=== PATIENT | female | born 1975 | race Caucasian/White ===

== ENCOUNTER 2018-11-04 09:37 | Outpatient (REF) | payer MEDICAID, SELFPAY ==
--- NOTE | 2018-11-04 08:45 | PAPFT_PTH ---
PATIENT: MONIQUE GUEVARA LOC: [facility] U#:[id number] AGE/SX: 43/F ROOM: RE11/04/[address]: Veronica Almendarez : 1975 BED: DIS: 11/04/2018 SPEC #: [id number] RECD: 11/04/18 12:59 STATUS: KRIS HESTER #: [id number] MILES: 11/04/18 08:[address]: Veronica Almendarez DEPT: [facility] Cytology RECD BY: Cristy Elaine Tissues: 1 - CX/ENDOCX FOR PAP SMEARS Procedures: PAP THIN PREP/UVM Screening Comments: [id number]
== END 2018-11-04 09:57 ==
LOC: NCHCN 09:37
PROVIDERS: PCP Nurse Practitioner; Visit Provider Nurse Practitioner
DX: Z12.4 Encounter for screening for malignant neoplasm of cervix (principal); Z00.00 Encounter for general adult medical examination without abnormal findings
CPT/HCPCS: 88142

== ENCOUNTER 2019-05-03 16:37 | Emergency (ER) | payer MEDICAID, SELFPAY ==
[2019-05-03 16:44] VITALS: BP 128/71; PULSE 124; RESP 24; TEMP 37.3; O2SAT 99
[2019-05-03] MEDS: Ondansetron 4 MG/2 ML VIAL (17:36)
[2019-05-03] MEDS: Normal Saline 1,000 ML 1000 ML IV ×2 (17:37→19:36)
[2019-05-03 17:46] LABS: Abs Immature Grans 0.02 k/cumm (0.0-0.09); Absolute Basophil Count 0.01 k/cumm (0.0-0.2); Absolute Lymphocyte Count 1.05 k/cumm (1.2-3.4); Absolute Neutrophil Count 3.29 k/cumm (1.2-6.7); Basophils % 0.2; HCT 44.2 % (36.0-46.0); HGB 15.6 g/dL (12.0-15.5); Immature Grans % 0.4; Lymphocytes % 22.5; Mean Corp. HGB Concentration 35.3 g/dL (32.0-36.0); Mean Corpuscular Hemoglobin 30.3 pg (27.0-33.0); Mean Corpuscular Volume 85.8 fL (80-95); Mean Platelet Volume 9.5 fL (8.0-11.0); Monocytes % 6.4; Neutrophils % 70.5; Platelet Count 178 x1000/uL (130-400); RBC 5.15 m/cumm (4.00-5.20); RBC Distribution Width 12.4 % (11.7-14.6); White Blood Cell Count 4.67 k/cumm (4.4-10.8)
[2019-05-03 17:47] LABS: Lactate 2.5 mmol/L (0.6-1.4)
--- NOTE | 2019-05-03 17:51 | W.ED.GENAD ---
Discharge Plan Disposition Patient Disposition: HOME Condition: Stable Discharge Details Chief Complaint: Cellulitis Clinical Impression: Fever, Rash, Headache Primary Care Provider: Veronica Almendarez ED Provider: Kayla Bergman Home Meds and New Rx's Prescriptions: New doxycycline hyclate 100 mg tablet 100 mg PO BID 21 Days Qty: 42 RF: 0 Discharge Instructions Instructions: Lyme Disease (ED), Fever in Adults (ED), Acute Rash (ED), General Headache (ED) Additional Instructions: Take the antibiotics until finished. Alternate Tylenol and Motrin as needed and directed for pain and fever. Drink plenty of fluids and get plenty of rest. You will be notified if you have a positive Lyme disease test. Follow-up with your scheduled appointment with your primary care doctor this week. Return immediately to the emergency department if you develop any worsening or new concerning symptoms such as persistent fevers, worsening headache, chest pain, shortness of breath or any other concerns. Discharge Data Discharge Date/Time-TO BE ENTERED AT DEPARTURE: 05/03/19 20:27 Discharge Physician: Kayla Bergman Medical Decision Making 1709 -- 43-year-old female with history of hypoglycemia who presents with complaint of possible spider bite to her left calf sustained 2 days ago. She states she developed a right-sided headache and neck pain 1 day prior to this but this has worsened since the possible spider bite. She does admit to a history of chronic right sided head and neck pain for several years but states it is worse since her possible bug bite. Heart rate 124 on arrival. Temp 99.1. Patient appeared uncomfortable and nauseous. She had IV placed, bolus IV fluids, dose of Zofran as well as screening labs done on arrival. Left posterior leg rash appeared consistent with an early cellulitis versus bull's-eye rash. Friend in room had a picture on her phone of the rash from 2 days ago which looked very consistent with a bull's-eye rash. In patient's presentation of headache, fever, chills, would be concerned about Lyme disease. She has no meningeal signs. Has her right sided head and neck pain has been present for several years and worse since onset of her rash, does not appear consistent with meningitis, but would be a possibility. Discussed the possibility of lumbar puncture but patient would rather hold on this at this time. 1840 -- Upon my reassessment, patient still complaining of headache. A second liter of IV fluids, Toradol, Compazine and CT head ordered. Labs and imaging reviewed. Normal white blood cell count. Potassium 3.1. Bicarb 20.7. Anion gap 15. Glucose 123. Lactate 2.5. Magnesium 1.4. Urinalysis negative. Urine negative. CT head noted findings consistent with sinusitis. 2004 -- Patient had been signed out to my colleague Dr. Raymond to follow-up on patient's response to medications. However shortly after signout, patient had requested to leave. She stated that the IV was bothering her arm and she wanted it taken out. She had just started the second liter of fluids. She had magnesium still running. She wanted the magnesium and IV fluids stopped. She states she had much improvement with the Toradol and Compazine. Discussed with patient that we could be possibly missing bacterial or Lyme meningitis and she is aware of the risk of and disability associated with these diagnoses but would like to go home at this time. She demonstrates capacity make decisions. She appeared more comfortable. Her heart rate normalized. We will give 1 dose of doxycycline here as well as prescription which can cover for possible Lyme disease, sinusitis, or cellulitis associated with a bug or spider bite. A tick and Lyme panel was obtained. She has a follow-up appoint with her primary care doctor this week. She was instructed to return here immediately if worse. Medical Records Medical records reviewed: Yes I reviewed the patient's medical records. Imaging Data Radiologic Study: Radiologist's impression: CT Head Without Contrast EXAM DATE/TIME: 05/03/2019 19:06 CLINICAL HISTORY: 43 years old, female; Pain; Patient HX: Headache, L sided, chills; Additional info: R/O acute process TECHNIQUE: Imaging protocol: Computed tomography images of the head without contrast. Coronal and sagittal reformatted images were created and reviewed. COMPARISON: No relevant prior studies available. FINDINGS: Brain: No hemorrhage. No significant white matter disease. No edema. Ventricles: No ventriculomegaly. Bones/joints: No acute fracture. Sinuses: Significant opacification of the sphenoid sinus with air-fluid level, probably acute sinusitis. Mastoid air cells: No mastoid effusion. Soft tissues: No suspicious lesions. IMPRESSION: 1. No acute intracranial findings. 2. Significant opacification of the sphenoid sinus with air-fluid level, probably acute sinusitis. Lab Data Lab results reviewed: Yes I reviewed the patient's lab results. 05/03/19 17:55 Blood Blood Culture - Pending 05/03/19 17:21 Blood Blood Culture - Pending Laboratory Tests Range/Units 05/03/19 05/03/19 05/03/19 17:21 17:21 17:21 WBC (4.4-10.8) k/cumm 4.67 RBC (4.00-5.20) m/cumm 5.15 Hgb (12.0-15.5) g/dL 15.6 H Hct (36.0-46.0) % 44.2 MCV (80-95) fL 85.8 MCH (27.0-33.0) pg 30.3 MCHC (32.0-36.0) g/dL 35.3 RDW (11.7-14.6) % 12.4 Plt Count (130-400) x1000/uL 178 MPV (8.0-11.0) fL 9.5 Immature Gran % 0.4 Neutrophils % 70.5 Lymphocytes % 22.5 Monocytes % 6.4 Eosinophils % 0.0 Basophils % 0.2 Absolute Neutrophils (1.2-6.7) k/cumm 3.29 Absolute Lymphocytes (1.2-3.4) k/cumm 1.05 L Absolute Monocytes (0.11-0.7) k/cumm 0.30 Absolute Eosinophils (0.0-0.7) k/cumm 0.00 Absolute Basophils (0.0-0.2) k/cumm 0.01 Sodium (136-145) mmol/L 134 L Potassium (3.5-5.1) mmol/L 3.1 L Chloride (98-107) mmol/L 98 Carbon Dioxide (21.0-32.0) mmol/L 20.7 L Anion Gap (3-11) mmol/L 15.3 H BUN (7-18) mg/dL 8 Creatinine (0.55-1.02) mg/dL 1.12 H Estimated GFR/1.73 m2 (mL/min/1.73m2) 52.85 Glucose (70-100) mg/dL 123 H Lactate (0.6-1.4) mmol/L 2.5 H* Calcium (8.5-10.1) mg/dL 8.8 Magnesium (1.8-2.4) mg/dL 1.4 L Total Bilirubin (0.2-1.0) mg/dL 0.3 AST (15-37) U/L 34 ALT (12-78) U/L 35 Alkaline Phosphatase (46-116) U/L 59 Total Protein (6.4-8.2) g/dL 8.4 H Albumin (3.4-5.0) g/dL 3.6 Urine Color (Yellow) Urine Clarity (Clear) Urine pH (5-8) Ur Specific [place] (1.005-1.025) Urine Protein (Negative) mg/dL Urine Ketones (Negative) mg/dL Urine Blood (Negative) Urine Nitrite (Negative) Urine Bilirubin (Negative) Urine Urobilinogen (Up TO 0.2) EU/dL Ur Leukocyte Esterase (Negative) Urine Glucose (Negative) mg/dL Range/Units 05/03/19 19:10 WBC (4.4-10.8) k/cumm RBC (4.00-5.20) m/cumm Hgb (12.0-15.5) g/dL Hct (36.0-46.0) % MCV (80-95) fL MCH (27.0-33.0) pg MCHC (32.0-36.0) g/dL RDW (11.7-14.6) % Plt Count (130-400) x1000/uL MPV (8.0-11.0) fL Immature Gran % Neutrophils % Lymphocytes % Monocytes % Eosinophils % Basophils % Absolute Neutrophils (1.2-6.7) k/cumm Absolute Lymphocytes (1.2-3.4) k/cumm Absolute Monocytes (0.11-0.7) k/cumm Absolute Eosinophils (0.0-0.7) k/cumm Absolute Basophils (0.0-0.2) k/cumm Sodium (136-145) mmol/L Potassium (3.5-5.1) mmol/L Chloride (98-107) mmol/L Carbon Dioxide (21.0-32.0) mmol/L Anion Gap (3-11) mmol/L BUN (7-18) mg/dL Creatinine (0.55-1.02) mg/dL Estimated GFR/1.73 m2 (mL/min/1.73m2) Glucose (70-100) mg/dL Lactate (0.6-1.4) mmol/L Calcium (8.5-10.1) mg/dL Magnesium (1.8-2.4) mg/dL Total Bilirubin (0.2-1.0) mg/dL AST (15-37) U/L ALT (12-78) U/L Alkaline Phosphatase (46-116) U/L Total Protein (6.4-8.2) g/dL Albumin (3.4-5.0) g/dL Urine Color (Yellow) Yellow Urine Clarity (Clear) Clear Urine pH (5-8) 7.0 Ur Specific [place] (1.005-1.025) 1.015 Urine Protein (Negative) mg/dL Negative Urine Ketones (Negative) mg/dL 15 H Urine Blood (Negative) Negative Urine Nitrite (Negative) Negative Urine Bilirubin (Negative) Negative Urine Urobilinogen (Up TO 0.2) EU/dL 0.2 Ur Leukocyte Esterase (Negative) Negative Urine Glucose (Negative) mg/dL Negative ECG Data Attestation: I personally reviewed and interpreted this ECG (s) as follows: Interpretation: Rate of 69, sinus, no acute ST elevation or depression. Normal AL interval. QTc 441. QRS 92 HPI General Mode of arrival: wheelchair. Date/Time Provider Initiated Documentation: 05/03/19 16:51. Limitations to Documentation: no limitations. Information obtained by: patient. HPI Narrative: Patient is a 43-year-old female with a history of hypoglycemia who presents with concern for spider bite to her left posterior leg. Patient states 2 days ago she awoke at 2 AM with a sharp pain in her left posterior leg. She states shortly after awakening the next morning she noted a large spider which was approximately 2 x 2 cm which she thinks was the cause of her bite and pain. She states since then she has developed increasing redness and pain in her leg and now associated with chills, body aches and headache. She states she did develop a headache 1 to 2 days before the onset of the leg redness but states it is significantly worsened since the bite. She is quite certain that it is the result of a spider bite. She denies any known tick bite. She has not taken her temperature. She states she has a history of chronic right-sided headache and right-sided neck pain which has been associated with sinus infections over the past few years. She states her current headache is in the same location for the past 5 days but feels more intense and has been more constant than usual. She denies any sensitivity to light or posterior headache. She denies any extremity weakness or numbness. She denies any cough, sore throat, ear pain, chest pain, shortness of breath, abdominal pain, urinary symptoms. Related Data Home Medications Medication Instructions Recorded Confirmed doxycycline hyclate 100 mg PO BID 21 Days #42 tab 05/03/19 Previous Rx's Medication Instructions Recorded doxycycline hyclate 100 mg PO BID 21 Days #42 tab 05/03/19 Allergies Allergy/AdvReac Type Severity Reaction Status Date / Time diphenhydramine Allergy Severe Other (See Unverified 05/03/19 16:49 Comment) iodine Allergy Severe Skin Rash Unverified 05/03/19 16:49 latex Allergy Severe Skin Rash Unverified 05/03/19 16:49 General Stated Complaint: Cellulitis SIENNA: 3 Review of Systems Review of Systems All systems reviewed & are unremarkable except as noted in HPI and below Constitutional Reports as per HPI, Reports chills, Reports fever(s) and Reports headache(s) Eyes Denies blurry vision ENT Denies dizziness, Reports headache(s), Denies sore throat and Denies throat swelling Cardiovascular Denies chest pain and Denies dyspnea Respiratory Denies cough and Denies dyspnea Gastrointestinal Denies abdominal pain, Denies diarrhea and Denies vomiting Genitourinary Denies hematuria and Denies dysuria Musculoskeletal Denies back pain and Denies numbness Integumentary/Breasts Reports lesions and Reports rash Neurologic Denies dizziness, Reports headache(s), Denies focal weakness and Denies numbness Allergic/Immunologic Denies throat swelling [facility] Medical History Hypoglycemia (Acute) Surgical History H/O unilateral oophorectomy (Acute) History of back surgery (Acute) Hx of bilateral salpingectomy (Acute) Social History Smoking/Tobacco Use Status: Current-Occasional Tobacco Type: cigarettes Alcohol Intake: current Alcohol Intake frequency: holidays/special occasions only Drug use: Socially Substance use type: marijuana Exam Const General: cooperative and healthy appearing Orientation: alert and awake [facility] Head: normal to inspection Ears: hearing grossly normal bilaterally, external ears normal and TM's normal bilaterally General nose exam: external nose normal Face and sinus: normal facial exam Mouth: oral mucosae normal Teeth and gingiva: dentition normal Throat: posterior oropharynx normal Eyes General: appearance normal, both eyes and all related structures Eyelids: eyelids normal Pupils: PERRL EOM: EOM intact bilaterally Neck Neck: normal visual inspection Lymphatic: no lymphadenopathy noted Chest Chest: normal inspection of the chest Resp Effort & Inspection: normal respiratory effort and able to speak in complete sentences Auscultation: clear to auscultation bilaterally Cardio Rate: regular rate Rhythm: regular rhythm GI Inspection: normal to inspection Palpation: soft, not firm, no guarding, no hepatosplenomegaly, no masses and nontender Auscultation: normal bowel sounds Back/Spine/Pelvis Back: no CVA tenderness Skin Full body images: 1. 2 x 3 cm area of clustered papules/questionable vesicles which are significantly tender to palpation. There is a very faint area of clearing surrounding this area with an additional very faint area of erythrema surrounding the clearing which could be possibly consistent with a bull's-eye rash. No abscess noted Neuro General: alert and awake Cranial Nerves: CN's II-XI intact bilaterally Cognition: normal cognition Speech: speech normal Gait: normal gait Motor: muscle tone normal throughout and strength 5/5 throughout Sensory Exam: no sensory deficits noted Extrem General: normal to inspection, full ROM and normal capillary refill Psych Appearance: grossly normal Mental Status: mental status grossly normal Speech and Movement: speech and movement normal Affect: normal affect Thought Process: normal Course Vital Signs Temperature 99.1 F 05/03/19 16:44 Pulse 124 H 05/03/19 16:44 Respiratory Rate 24 05/03/19 16:44 Blood Pressure 128/71 05/03/19 16:44 Pulse Oximetry 99 05/03/19 16:44 Temperature 99.1 F 05/03/19 16:44 Pulse 124 H 05/03/19 16:44 Respiratory Rate 24 05/03/19 16:44 Respiratory Effort 08/03/19 16:46 Blood Pressure 128/71 08/03/19 16:44 Pulse Oximetry 99 05/03/19 16:44 Pain Level 8 05/03/19 16:44 Lab/Test Results Lab/Test Results: 05/03/19 17:21 Blood Blood Culture - Pending 05/03/19 17:25 Blood Blood Culture - Pending Laboratory Tests Range/Units 05/03/19 05/03/19 17:21 17:21 WBC (4.4-10.8) k/cumm 4.67 RBC (4.00-5.20) m/cumm 5.15 Hgb (12.0-15.5) g/dL 15.6 H Hct (36.0-46.0) % 44.2 MCV (80-95) fL 85.8 MCH (27.0-33.0) pg 30.3 MCHC (32.0-36.0) g/dL 35.3 RDW (11.7-14.6) % 12.4 Plt Count (130-400) x1000/uL 178 MPV (8.0-11.0) fL 9.5 Immature Gran % 0.4 Neutrophils % 70.5 Lymphocytes % 22.5 Monocytes % 6.4 Eosinophils % 0.0 Basophils % 0.2 Absolute Neutrophils (1.2-6.7) k/cumm 3.29 Absolute Lymphocytes (1.2-3.4) k/cumm 1.05 L Absolute Monocytes (0.11-0.7) k/cumm 0.30 Absolute Eosinophils (0.0-0.7) k/cumm 0.00 Absolute Basophils (0.0-0.2) k/cumm 0.01 Lactate (0.6-1.4) mmol/L 2.5 H* Sign Out Sign Out Data: Sign Out Comment: Follow-up on patient's response to medications and final disposition. If patient has no improvement, discuss plan for possible lumbar puncture. If significantly improved, can consider discharge home with follow-up with primary care doctor and treatment for possible Lyme disease with doxycycline. Last updated by Kayla Bergman DO at 05/03/19 19:57
[2019-05-03 17:55] VITALS: TEMP 38
[2019-05-03 17:59] LABS: ALT 35 U/L (12-78); AST 34 U/L (15-37); Albumin 3.6 g/dL (3.4-5.0); Alkaline Phosphatase 59 U/L (46-116); Anion Gap 15.3 mmol/L (3-11); BUN 8 mg/dL (7-18); Bilirubin, Total 0.3 mg/dL (0.2-1.0); CO2 20.7 mmol/L (21.0-32.0); CREATININE 1.12 mg/dL (0.55-1.02); Calcium 8.8 mg/dL (8.5-10.1); Chloride 98 mmol/L (98-107); Estimated GFR 52.85 (mL/min/1.73m2); Glucose 123 mg/dL (70-100); Magnesium 1.4 mg/dL (1.8-2.4); Potassium 3.1 mmol/L (3.5-5.1); Sodium 134 mmol/L (136-145); Total Protein 8.4 g/dL (6.4-8.2)
--- NOTE | 2019-05-03 19:17 | DI.CT_ITS ---
SYMPTOMS/DIAGNOSIS: HEADACHE LT SIDED, CHILLS, ? ACUTE PROCESS NONCONTRAST HEAD CT: No intracranial hemorrhage, mass or infarct is seen. The ventricles are normal in size. There is fluid in the sphenoid sinus. No bony destruction is seen. IMPRESSION: Sphenoid sinusitis.
[2019-05-03 19:30] LABS: Bilirubin Negative (Negative); Blood Negative (Negative); Clarity Clear (Clear); Glucose Negative (Negative); Ketones 15 mg/dL (Negative); Leukocyte Esterase Negative (Negative); Nitrite Negative (Negative); Specific Gravity 1.015 (1.005-1.025); Urobilinogen 0.2 EU/dL (Up TO 0.2)
--- NOTE | 2019-05-03 19:31 | DI.VRAD_ITS ---
EXAM: CT Head Without Contrast EXAM DATE/TIME: 05/03/2019 19:06 CLINICAL HISTORY: 43 years old, female; Pain; Patient HX: Headache, L sided, chills; Additional info: R/O acute process TECHNIQUE: Imaging protocol: Computed tomography images of the head without contrast. Coronal and sagittal reformatted images were created and reviewed. COMPARISON: No relevant prior studies available. FINDINGS: Brain: No hemorrhage. No significant white matter disease. No edema. Ventricles: No ventriculomegaly. Bones/joints: No acute fracture. Sinuses: Significant opacification of the sphenoid sinus with air-fluid level, probably acute sinusitis. Mastoid air cells: No mastoid effusion. Soft tissues: No suspicious lesions. IMPRESSION: 1. No acute intracranial findings. 2. Significant opacification of the sphenoid sinus with air-fluid level, probably acute sinusitis. Dictated and Authenticated by: Faustina Plunkett MD. Ordering:COLLINS Garza MD
[2019-05-03] MEDS: Potassium Chloride 20 MEQ TABCR 40 MEQ PO (19:36)
[2019-05-03] MEDS: Ketorolac 30 MG/ML VIAL IVP (19:37)
[2019-05-03] MEDS: Prochlorperazine 10 MG/2 ML VIAL IVP (19:39)
[2019-05-03] MEDS: MAGNESIUM SULFATE 2 GM/50 ML BAG IVPB (19:40)
--- NOTE | 2019-05-03 20:00 | NUR.NOTE ---
Nursing Note: pt resting in stretcher, no signs of distress. Provided apple juice, tolerating PO intake without difficulty.
--- NOTE | 2019-05-03 20:10 | NUR.NOTE ---
Nursing Note: Magnesium drip stopped with approximately 37 mLs left in the bag. pt states that she refuses the rest of the magnesium.
[2019-05-03 20:19] VITALS: BP 97/61; PULSE 75; RESP 16; O2SAT 100
[2019-05-03] MEDS: Doxycycline Hyclate 100 MG CAP PO ×2 (20:28)
--- NOTE | 2019-05-03 20:28 | NUR.NOTE ---
Nursing Note: pt alert/oriented/ambulatory with steady gait. d.c to home with mother. instructions reviewed, medication education discussed, emphasis on the importance of follow up care. VSS
[2019-05-05 12:19] LABS: Lyme Ab w Rflx to Lyme Confirm Negative
[2019-05-06 14:57] LABS: Anaplasma phagocytophilum Negative (Negative); B. miyamotoi PCR Negative (Negative); Babesia divergens/MO-1 Negative (Negative); Babesia duncani Negative (Negative); Babesia microti Negative (Negative); Ehrlichia chaffeensis Negative (Negative); Ehrlichia ewingii/canis Negative (Negative); Ehrlichia muris eauclairensis Negative (Negative)
== END 2019-05-03 20:27 | disposition home or self-care (01) ==
LOC: ER 20:30
PROVIDERS: Emergency Provider Physician Assistant; PCP Nurse Practitioner
DX: R21 Rash and other nonspecific skin eruption (principal); R50.9 Fever, unspecified; R51 Headache; S80.862A Insect bite (nonvenomous), left lower leg, initial encounter; W57.XXXA Bitten or stung by nonvenomous insect and other nonvenomous arthropods, initial encounter; J01.90 Acute sinusitis, unspecified; Z53.29 Procedure and treatment not carried out because of patient's decision for other reasons
CPT/HCPCS: 36415; 80053; 81025; 87040; 87798; 93005; 96361; 96365; 96375; 99285; 70450; 81003; 83605; 83735; 85025; 86618; 93010; J0780; J1885; J2405

== ENCOUNTER 2019-05-04 06:47 | Emergency (ER) | payer MEDICAID, SELFPAY ==
[2019-05-04 06:50] VITALS: BP 105/64; PULSE 110; RESP 16; TEMP 37.1; O2SAT 98
--- NOTE | 2019-05-04 07:04 | W.ED.GENAD ---
Discharge Plan Disposition Patient Disposition: HOME Condition: Stable Discharge Details Chief Complaint: Cellulitis Clinical Impression: Headache, Rash, Cellulitis of left leg Primary Care Provider: Veronica Almendarez ED Provider: Kayla Bergman Home Meds and New Rx's Prescriptions: New cephalexin [Keflex] 500 mg capsule 500 mg PO QID 7 Days Qty: 28 RF: 0 mupirocin 2 % ointment 1 applic TP BID Qty: 15 RF: 0 Continued doxycycline hyclate 100 mg tablet 100 mg PO BID 21 Days Qty: 42 RF: 0 Discharge Instructions Instructions: Cellulitis (ED), Acute Rash (ED), General Headache (ED) Additional Instructions: Take the antibiotics until finished. Apply the topical antibiotic cream as directed. Follow-up with your scheduled appointment with your primary care doctor tomorrow. Return immediately to the emergency department if you develop any worsening or new concerning symptoms. Discharge Data Discharge Date/Time-TO BE ENTERED AT DEPARTURE: 05/04/19 11:22 Discharge Physician: Kayla Bermgan Medical Decision Making <Sumanth Raymond MD - Last Filed: 05/04/19 07:10> 43 yo female who guero chronic medical problems who comes in with chief complaint of right sided neck and head pain since Sunday. She also noted a rash on the posterior left calf that she feels is likely a spider bite. She was seen in the ED last night and had lab work done and started tx for possible lyme. She had a CT of her head done which showed likely sinusitis which the patient wasn't aware of and feels this could be causing her pain. She localizes the pain to the right neck wrapping around the posterior head to the frontal portion. Normal appearing eye, perrl, eomi, no focal motor or sensation deficits on exam. 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 I suspect her pain is due to the sinusitis but will obtain CTA to eval for possible dissection given it is one sided. She has no temporal artery pain so doubt temproal arteritis. Pain slowly worsened, not thunderclap in description so doubt sah. In terms of her rash sh ehas mild erythema about 3x3cm that is not significantly warm to touch of the posterior left leg. It could be form a spider bite, also could be tick born illness which panel was sent last night. No crepitus or severe pain so doubt nec fasc. Not significantly warm to touch so less likely cellulitis and no fluctuance to suggest abscess. Do not feel this rash requires further eval or tx at this time pt to be signed out to oncoming provider pending labs and imaging results Differential Diagnosis sinusitis, dissection, lyme <Kayla Bergman DO - Last Filed: 05/05/19 16:18> Please see Dr. Raymond's notes for initial presentation, exam and plan. 43-year-old female with no significant past medical history presents with right-sided headache and neck pain for the past 5 days and left post leg rash for the past 4 days which she thought was likely due to a spider bite. She was seen last night for the same complaint and had CT head which noted acute sinusitis, lab work which revealed a lactate of 2.5, normal white blood cell count. She was given IV fluids, Toradol and Compazine and felt much better and requested to go home. Her leg rash per a picture on a phone earlier this week looked consistent with a bull's-eye rash and she was treated for possible Lyme disease. It was discussed obtaining a possible lumbar puncture for possible meningitis as patient had a fever, headache and neck pain, but patient declined lumbar puncture at this time. She has had chronic right-sided head and neck pain for the past 3 years, has no photophobia, and no meningeal signs, so diagnosis of meningitis appears less likely. She returns this morning with worsening redness to her leg and persistent right-sided head and neck pain. Case endorsed to follow-up on lab work and CTA head and neck. 0800 --upon my evaluation, patient states she does not recall me telling her that she had acute sinusitis on her CT had yesterday I discussed that we did discuss this but that she was also notified that there were no acute findings in her brain. Discussed that the doxycycline she was given for possible Lyme disease would cover for possible sinusitis, however in the emergency department we also must rule out more concerning symptoms and signs indicative of a more serious pathology such as meningitis. Patient's presentation today does not appear consistent with meningitis. She appears nontoxic, no meningeal signs. Her left leg rash appears to be worsening. There does appear to have a component of a clearing consistent with a bull's-eye rash with very tender papules in the center. Case was discussed with [facility] ID who states that erythema migrans can have a very tender center. Agrees with plan for treating with doxycycline at this time. Patient declined any further IV fluids. Will give a dose of Decadron 1010 --CTA head and neck negative for acute findings. Patient states she feels much better but just overall feels like she feels stiff and achy as she has been laying in bed for the last few days and is normally very active. She feels good to go home. We will give a dose of Toradol and follow-up on repeat lactate. 1045 --repeat lactate now normal. Patient states she feels better and would like to go home. Will add Keflex and topical Bactroban for mild worsening cellulitis. It is possible that the doxycycline has not had enough time to produce an effect. She has a follow-up appoint with her primary care doctor tomorrow. She is advised to return here anytime if worse. HPI <Sumanth Raymond MD - Last Filed: 05/04/19 07:10> General Mode of arrival: ambulatory. Date/Time Provider Initiated Documentation: 05/04/19 06:48. Limitations to Documentation: no limitations. Information obtained by: patient. History of Present Illness 44 year old F presents to the emergency department with the chief complaint of right sided head and neck pain, described as moderate, Quality is described as aching, and is localized to the head and neck. Patient started experiencing this day(s) (4) and it has been constant. No relieving factors improve symptom(s), No exacerbating factors reported . Patient did receive the following treatments prior to arrival, NSAID Related Data Home Medications Medication Instructions Recorded Confirmed doxycycline hyclate 100 mg PO BID 21 Days #42 tab 05/03/19 cephalexin [Keflex] 500 mg PO QID 7 Days #28 cap 05/04/19 mupirocin 1 applic TP BID #15 gm 05/04/19 Previous Rx's Medication Instructions Recorded doxycycline hyclate 100 mg PO BID 21 Days #42 tab 05/03/19 cephalexin [Keflex] 500 mg PO QID 7 Days #28 cap 05/04/19 mupirocin 1 applic TP BID #15 gm 05/04/19 Allergies Allergy/AdvReac Type Severity Reaction Status Date / Time diphenhydramine Allergy Severe Other (See Unverified 05/03/19 16:49 Comment) iodine Allergy Severe Skin Rash Unverified 05/03/19 16:49 latex Allergy Severe Skin Rash Unverified 05/03/19 16:49 General Stated Complaint: Cellulitis SIENNA: 3 Review of Systems <Sumanth Raymond MD - Last Filed: 05/04/19 07:10> Review of Systems All systems reviewed & are unremarkable except as noted in HPI and below Constitutional Denies chills, Denies fever(s) and Denies weakness Cardiovascular Denies chest pain and Denies dyspnea Respiratory Denies cough and Denies dyspnea Gastrointestinal Denies abdominal pain, Denies nausea and Denies vomiting Musculoskeletal Denies joint swelling Neurologic Denies weakness PFSH <Sumanth Raymond MD - Last Filed: 05/04/19 07:10> Social History Smoking/Tobacco Use Status: Current-Occasional Tobacco Type: cigarettes Alcohol Intake: current Alcohol Intake frequency: holidays/special occasions only Drug use: Socially Substance use type: marijuana Do you feel safe at home: Yes Do you feel safe in your relationship?: Yes Exam <Sumanth Raymond MD - Last Filed: 05/04/19 07:10> Const General: no acute distress Orientation: alert HENSC Head: normal to inspection Ears: external ears normal General nose exam: external nose normal Mouth: moist mucous membranes Eyes General: appearance normal, both eyes and all related structures Neck Neck: normal visual inspection Resp Effort & Inspection: normal respiratory effort and able to speak in complete sentences Cardio Rate: regular rate Skin General skin exam: elasticity normal Neuro General: alert and oriented x3 Extrem General: full ROM and normal capillary refill Psych Mental Status: mental status grossly normal Course <Sumanth Raymond MD - Last Filed: 05/04/19 07:10> Vital Signs Temperature 37.1 C 05/04/19 06:50 Pulse 110 H 05/04/19 06:50 Respiratory Rate 16 05/04/19 06:50 Blood Pressure 105/64 05/04/19 06:50 Pulse Oximetry 98 05/04/19 06:50 Temperature 37.1 C 05/04/19 06:50 Temperature Source Tympanic 05/04/19 06:50 Pulse 110 H 05/04/19 06:50 Respiratory Rate 16 05/04/19 06:50 Respiratory Effort 05/04/19 06:53 Blood Pressure 105/64 05/04/19 06:50 Pulse Oximetry 98 05/04/19 06:50 Oxygen Delivery Method Room Air 05/04/19 06:50 Oxygen Flow Rate 0 05/04/19 06:50 Pain Level 6 05/04/19 06:50 Sign Out <Sumanth Raymond MD - Last Filed: 05/04/19 07:10> Sign Out Data: Sign Out Comment: follow up on labs and imaging results Last updated by Sumanth Raymond MD at 05/04/19 07:11
[2019-05-04 07:37] LABS: Lactate-non-spesis 2.2 mmol/l (0.6-1.4)
[2019-05-04 07:42] LABS: Abs Immature Grans 0.01 k/cumm (0.0-0.09); Absolute Basophil Count 0.01 k/cumm (0.0-0.2); Absolute Monocyte Count 0.47 k/cumm (0.11-0.7); Absolute Neutrophil Count 3.71 k/cumm (1.2-6.7); Basophils % 0.2; HCT 39.2 % (36.0-46.0); HGB 13.5 g/dL (12.0-15.5); Immature Grans % 0.2; Lymphocytes % 17.6; Mean Corp. HGB Concentration 34.4 g/dL (32.0-36.0); Mean Corpuscular Hemoglobin 30.5 pg (27.0-33.0); Mean Corpuscular Volume 88.5 fL (80-95); Mean Platelet Volume 9.5 fL (8.0-11.0); Monocytes % 9.2; Neutrophils % 72.8; Platelet Count 177 x1000/uL (130-400); RBC 4.43 m/cumm (4.00-5.20); RBC Distribution Width 12.6 % (11.7-14.6)
[2019-05-04] MEDS: ACETAMINOPHEN 1,000 MG/100 ML BTL 400 MG IVPB (07:44)
[2019-05-04] MEDS: Normal Saline 1,000 ML 1000 ML IV (07:44)
[2019-05-04 07:58] LABS: INR 0.9 (0.9-1.1); PTT Activated 25.2 sec (21.0-31.4); Prothrombin Time 9.3 sec (9.3-11.0)
[2019-05-04 08:05] LABS: ALT 33 U/L (12-78); AST 26 U/L (15-37); Albumin 2.8 g/dL (3.4-5.0); Alkaline Phosphatase 51 U/L (46-116); Anion Gap 13.4 mmol/L (3-11); BUN 8 mg/dL (7-18); Bilirubin, Total 0.2 mg/dL (0.2-1.0); CO2 19.6 mmol/L (21.0-32.0); CREATININE 0.99 mg/dL (0.55-1.02); Calcium 7.8 mg/dL (8.5-10.1); Chloride 104 mmol/L (98-107); Glucose 127 mg/dL (70-100); Magnesium 1.6 mg/dL (1.8-2.4); Sodium 137 mmol/L (136-145); Total Protein 6.6 g/dL (6.4-8.2)
[2019-05-04] MEDS: Omnipaque 350 MG/ML 100 ML BTL IJ (08:16)
--- NOTE | 2019-05-04 08:30 | DI.CT_ITS ---
SYMPTOMS/DIAGNOSIS: RT NECK AND HEAD PAIN CTA OF THE HEAD AND NECK: CT angiography was performed with multi slice acquisition and multi planar and 3D reconstruction. There is no evidence of fracture. The vessels of the head and neck are well opacified. There is no evidence of occlusion, significant stenosis or dissection. IMPRESSION: Negative CTA of the head and neck.
[2019-05-04] MEDS: Dexamethasone 10 MG/ML VIAL IVP (09:53)
--- NOTE | 2019-05-04 10:04 | DI.VRAD_ITS ---
EXAM: CT Angiography Head With Contrast EXAM DATE/TIME: 05/04/2019 7:04 AM CLINICAL HISTORY: 43 years old, female; Other: Right neck and head pain TECHNIQUE: Imaging protocol: Computed tomographic angiography images of the head with intravenous contrast using CT angiography protocol. Coronal and sagittal reformatted images were created and reviewed. 3D rendering: MIP reconstructed images were created and reviewed. Radiation optimization: All CT scans at this facility use at least one of these dose optimization techniques: automated exposure control; mA and/or kV adjustment per patient size (includes targeted exams where dose is matched to clinical indication); or iterative reconstruction. Contrast material: OMNIPAQUE 350;Contrast volume: 85 ml;Contrast route: IV; COMPARISON: CT HEAD WO 05/03/2019 7:12 PM FINDINGS: Right internal carotid artery: Unremarkable. Intracranial segment is patent with no significant stenosis. No aneurysm. Right anterior cerebral artery: Unremarkable. No occlusion or significant stenosis. No aneurysm. Right middle cerebral artery: Unremarkable. No occlusion or significant stenosis. No aneurysm. Right posterior cerebral artery: Unremarkable. No occlusion or significant stenosis. No aneurysm. Right vertebral artery: Unremarkable. No occlusion or significant stenosis. No aneurysm. Left internal carotid artery: Unremarkable. Intracranial segment is patent with no significant stenosis. No aneurysm. Left anterior cerebral artery: Unremarkable. No occlusion or significant stenosis. No aneurysm. Left middle cerebral artery: Unremarkable. No occlusion or significant stenosis. No aneurysm. Left posterior cerebral artery: Left posterior communicating artery. Left vertebral artery: Unremarkable. No occlusion or significant stenosis. No aneurysm. Basilar artery: Unremarkable. No occlusion or significant stenosis. No aneurysm. Other vasculature: Codominant vertebral arteries. Anterior communicating artery. No arterial occlusion. IMPRESSION: No arterial occlusion. EXAM: CT Angiography Neck With Contrast EXAM DATE/TIME: 05/04/2019 7:04 AM CLINICAL HISTORY: 43 years old, female; Other: Right neck and head pain TECHNIQUE: Imaging protocol: Axial computed tomographic angiography images of the neck with intravenous contrast using CT angiography protocol. Coronal and sagittal reformatted images were created and reviewed. 3D rendering: MIP reconstructed images were created and reviewed. Radiation optimization: All CT scans at this facility use at least one of these dose optimization techniques: automated exposure control; mA and/or kV adjustment per patient size (includes targeted exams where dose is matched to clinical indication); or iterative reconstruction. COMPARISON: CT HEAD WO 05/03/2019 7:12 PM FINDINGS: VASCULATURE: Right common carotid artery: Unremarkable. No stenosis. No dissection or occlusion. Right internal carotid artery: No ICA stenosis by NASCET/SRU criteria. Right external carotid artery: Unremarkable. No occlusion or stenosis of the origin. Right vertebral artery: Codominant vertebral arteries. Left common carotid artery: Unremarkable. No stenosis. No dissection or occlusion. Left internal carotid artery: Unremarkable extracranial segment. No stenosis. No dissection or occlusion. Left external carotid artery: Unremarkable. No occlusion or stenosis of the origin. Left vertebral artery: Unremarkable. No stenosis. No dissection or occlusion. Other vasculature: No arterial dissection identified. NECK: Bones/joints: No acute fracture. Soft tissues: Normal. No significant soft tissue swelling. Dental: Examination is limited secondary to metallic artifact from dental fillings and/or dental hardware. IMPRESSION: 1. Codominant vertebral arteries. 2. No ICA stenosis by NASCET/SRU criteria. 3. No arterial dissection identified. COMMENT: Reference per NASCET criteria for degree of stenosis: Mild: less than 50% stenosis. Moderate: 50-69% stenosis. Severe: 70-94% stenosis. Near occlusion: 95-99% stenosis. Dictated and Authenticated by: Sumanth Cordoba MD. Ordering:TAYLOR Julio MD
[2019-05-04 10:27] LABS: Lactate-non-spesis 0.6 mmol/l (0.6-1.4)
[2019-05-04] MEDS: Ketorolac 30 MG/ML VIAL IVP (10:27)
[2019-05-04 11:23] VITALS: BP 100/77; PULSE 64; RESP 18; TEMP 36.6; O2SAT 100
== END 2019-05-04 11:22 | disposition home or self-care (01) ==
PROVIDERS: Emergency Medicine; Emergency Provider Physician Assistant; PCP Nurse Practitioner
DX: R51 Headache (principal); R21 Rash and other nonspecific skin eruption; M54.2 Cervicalgia; L03.116 Cellulitis of left lower limb
CPT/HCPCS: 36415; 70496; 70498; 80053; 96361; 96374; 96375; 99285; 83605; 83735; 85025; 85610; 85730; 99284; J0131; J1100; J1885; J3490